=== PATIENT | male | born 1950 | race Caucasian/White ===

== ENCOUNTER 2021-06-19 08:24 | Emergency (ER) | payer OTHER, SELFPAY ==
[2021-06-19 08:43] VITALS: BP 128/80; PULSE 95; RESP 15; TEMP 36.1; O2SAT 97; BMI 26.1
[2021-06-19 09:22] VITALS: PULSE 97; O2SAT 100
[2021-06-19 09:24] VITALS: BP 117/87; PULSE 92; O2SAT 96
--- NOTE | 2021-06-19 09:33 | ED.SKABFB ---
HPI - Skin/Abscess/Foreign Bdy General Chief complaint: Skin/Abscess/Foreign Body Stated complaint: right rowe/ankle injury x3 days Time Seen by Provider: 06/19/21 09:24 Source: patient Mode of arrival: Ambulatory Limitations: no limitations History of Present Illness HPI narrative: Patient is a 71-year-old male with history of atrial fibrillation on Eliquis and metoprolol presenting after ground level fall on Thursday 2 days ago. He says he tripped over a curb and cut his rowe. He wash it really well he did hydrogen peroxide. The here today at his daughter's request for to be checked out. It is quite tender but he has no surrounding erythema he has not had any fever or chills. Related Data Allergies Allergy/AdvReac Type Severity Reaction Status Date / Time Penicillins AdvReac Verified 06/19/21 08:43 Review of Systems Review of Systems Narrative: GENERAL: Denies chills,fever HEENT: Denies throat pain RESPIRATORY: Denies dyspnea, cough, wheezing CARDIOVASCULAR: Denies chest pain, palpitations GASTROINTESTINAL: Denies nausea, vomiting MUSCULOSKELETAL: Denies extremity pain, injury SKIN: See HPI NEUROLOGIC: Denies weakness, dizziness, headache, numbness 8 point review of systems is negative except for those stated above and HPI Patient History Social History Smoking Status: Unknown if ever smoked Smoking Status: Unknown if ever smoked alcohol intake frequency: holidays/special occasions only Substance Use Type: marijuana Exam Initial Vital Signs Initial Vital Signs: Vital Signs Temperature 96.9 F L 06/19/21 08:43 Pulse Rate 95 H 06/19/21 08:43 Respiratory Rate 15 06/19/21 08:43 Blood Pressure 128/80 06/19/21 08:43 Pulse Oximetry 97 06/19/21 08:43 GENERAL: Alert very pleasant well-appearing 71-year-old male CARDIOVASCULAR: peripheral pulses in tact, cap refill <2 sec RESPIRATORY: No respiratory distress, speaks in full sentences without difficulty [ABDOMEN: Soft, nontender, no guarding or rebound] EXTREMITIES: Normal range of motion, no clubbing or edema. Neurovascularly intact NEUROLOGICAL: Cranial nerves II through XII grossly intact. Normal gait and speech. SKIN: Right rowe sore 7 cm x 1 cm. Good pink skin granulation Course Vital Signs Vital signs: Vital Signs - 8 hr 06/19/21 08:43 06/19/21 09:22 07/28/21 09:24 Temperature 96.9 F L Pulse Rate 95 H 97 H 92 H Respiratory Rate 15 Blood Pressure 128/80 117/87 Pulse Oximetry 97 100 96 MDM - Skin/Abscess/Foreign Bdy MDM Narrative Medical decision making narrative: At this time certainly no sign of infection. He has actually done a really great job keeping it clean. Dressing has been placed. He is educated on what to monitor for and when to return to the emergency department. Discharge Plan Departure Patient Disposition: Home Clinical Impression: Leg wound, right Qualifiers: Encounter type: initial encounter Qualified Code(s): S81.801A - Unspecified open wound, right lower leg, initial encounter Instructions: DI for Wound Infection Activity Restrictions/Additional Instructions: *You have been diagnosed with right leg wound *What to do: You are doing an excellent job of keeping your wound clean. At this time you do not need antibiotics. You may keep dressing on for about 4 days and shower with it. Keep wound clean and dry with soap and water. You may apply Neosporin 1-2 times daily as well, once bandage is removed. If you are having surrounding redness, fever, increasing pain those are signs of infection any need to return to the emergency department. *Continue to take medications as directed *Follow up with your primary care provider in 2-3 days *Return to ER if you should have redness, pain, fever or any new, worsening or concerning symptoms Referrals: [facility] [Outside]
[2021-06-19 10:00] VITALS: BP 118/83; PULSE 89; RESP 16; O2SAT 98
== END 2021-06-19 10:01 | disposition home or self-care (01) ==
PROVIDERS: Emergency Provider Emergency Medicine
DX: S81.801D Unspecified open wound, right lower leg, subsequent encounter (principal)
CPT/HCPCS: 99281